=== PATIENT | female | born 2000 | race Caucasian/White ===

== ENCOUNTER 2020-12-20 09:25 | Outpatient (CLI) | payer OTHER, SELFPAY ==
--- NOTE | ~2020-12-20 | US_ITS ---
EXAMINATION: US abdomen limited DATE: 12/20/2020 10:01 INDICATION: Abnormal liver function tests. TECHNIQUE: Multiple grayscale and Doppler ultrasound images of the abdomen were obtained. COMPARISON: None FINDINGS: The visualized portion of the head of the pancreas is normal. The liver is normal without f ocal lesion. No liver surface nodularity. There is normal flow in main portal vein. The gallbladder i s normal in size. No gallstones or gallbladder wall thickening. There was no sonographic Candelaria sign. The common duct is normal and measures 3 mm. Right kidney is normal. IMPRESSION: 1. Normal right upper quadrant ultrasound. Reviewed, dictated and finalized at location B.
[2020-12-20 12:11] LABS: Hepatitis B Surface Antigen Negative (Negative)
[2020-12-20 12:17] LABS: HAV RESULT Negative (Negative); Hepatitis B Core IgM Result Negative (Negative)
[2020-12-20 12:28] LABS: Hepatitis C Virus Antibody Negative (Negative)
== END 2020-12-20 09:26 | disposition home or self-care (01) ==
PROVIDERS: PCP Nurse Practitioner Family; Visit Provider Nurse Practitioner Family
DX: R74.8 Abnormal levels of other serum enzymes (principal)
CPT/HCPCS: 36415; 76705; 80074

== ENCOUNTER 2021-09-07 15:40 | Emergency (ER) | payer OTHER, SELFPAY ==
[2021-09-07 15:41] VITALS: BP 117/62; PULSE 100; RESP 16; TEMP 37.3; O2SAT 100
--- NOTE | 2021-09-07 17:43 | PC.NURSE ---
pt's mother at desk asking how much longer. Explained the wait is extensive this evening. Pt is tearful with her mother. Took her own pain medication. Explained unable to give a wait time or how long it will be due to the acuity of other pt's that could come in who are more critical.
--- NOTE | 2021-09-07 17:47 | PC.NURSE ---
mother frantic due to the pt crying and shaking her hands at her mother. Gave ice pack and wet cold washcloth
--- NOTE | 2021-09-07 18:41 | PC.NURSE ---
from 174 until 184 mother sat with pt at bench near intake desk. In formed mother she had to wait outside and pt must sit in WR.
[2021-09-07 20:02] VITALS: BP 114/72; PULSE 113; RESP 16; O2SAT 99
--- NOTE | 2021-09-07 20:10 | ED.GENADULT ---
HPI - General Adult General Chief complaint: Dental/Oral Stated complaint: not urinating Time Seen by Provider: 09/07/21 19:43 Source: patient, family and RN notes reviewed Limitations: no limitations History of Present Illness HPI narrative: 21-year-old female presenting to the emergency department for evaluation of difficulty swallowing and uncontrolled pain since having a recent tonsillectomy. Patient had a tonsillectomy performed on Sunday by Dr. Kern. Patient states since that time she has been attended to take hydrocodone elixir but states that the medication is worsening her nausea and not controlling her pain. Patient's mother did have contact with the ENT and he recommended she present to the emerge department for evaluation. Patient denies any bleeding. Patient does dehydration. Her ENT did start her on a Medrol Dosepak but due to her being in the emergency department she has not yet started this medication. Related Data Home Medications Medication Instructions Recorded Confirmed bupropion HCl mg PO 09/07/21 escitalopram oxalate mg 09/07/21 norethindrone-e.estradiol-iron tablet 09/07/21 Allergies Allergy/AdvReac Type Severity Reaction Status Date / Time No Known Allergies Allergy Verified 09/07/21 20:04 Review of Systems Review of Systems: CONSTITUTIONAL: Denies fever, chills, or sweats. EYES: Denies visual changes, redness, or discharge. ENT: No difficulty breathing but does have increased pain with swallowing.. CARDIOVASCULAR: Denies chest pain, palpitations, or edema. RESPIRATORY: Denies cough or dyspnea. GASTROINTESTINAL: Denies abdominal pain but does have increased nausea and has had some emesis GENITOURINARY: Denies dysuria or hematuria. SKIN: Denies rash or itching. MUSCULOSKELETAL: Denies back pain, joint pain, or myalgia. NEUROLOGIC: Denies headache, numbness, or weakness. Exam Narrative: APPEARANCE: Well appearing, no pain, no distress, well-nourished. HEAD: normocephalic, atraumatic. EYES: PERRLA/EOMI, conjunctivae clear. NOSE: Normal no drainage EARS:TMS clear with good light reflex. THROAT: Able to view the eschars and they are well-appearing. No active bleeding. No abnormal swelling. No trismus NECK: Supple. No adenopathy, no masses. RESPIRATORY: Airway patent, respirations nonlabored. Clear to auscultation bilaterally, no rales, rhonchi, wheezing. CARDIOVASCULAR: Regular rate and rhythm without murmurs rubs or gallops. ABDOMINAL: Soft, nontender, nondistended, normal bowel sounds Course Course Emergency Course: Patient and mother updated on plan for IV fluids, meds for pain medication and antiemetics. Patient was also given her first dose of dexamethasone in the emergency department. Reevaluation(s) Reevaluation #1: On final reevaluation patient does feel improved. Both patient and mother were comfortable with the plan for discharge and close follow-up. All questions and concerns were addressed. Patient was in no distress at time of discharge from the emergency department. Vital Signs Vital signs: Vital Signs Temperature 99.2 F 09/07/21 15:41 Pulse Rate 100 09/07/21 15:41 Respiratory Rate 16 09/07/21 15:41 Blood Pressure 117/62 09/07/21 15:41 Pulse Oximetry 100 09/07/21 15:41 Temperature 99.2 F 09/07/21 15:41 Pulse Rate 113 H 09/07/21 21:52 Respiratory Rate 18 09/07/21 21:52 Blood Pressure 109/66 09/07/21 21:52 Pulse Oximetry 99 09/07/21 21:52 Medical Decision Making Vital Signs Vital Signs: Vital Signs Temperature 99.2 F 09/07/21 15:41 Pulse Rate 100 09/07/21 15:41 Respiratory Rate 16 09/07/21 15:41 Blood Pressure 117/62 09/07/21 15:41 Pulse Oximetry 100 09/07/21 15:41 Temperature 99.2 F 09/07/21 15:41 Pulse Rate 113 H 09/07/21 21:52 Respiratory Rate 18 09/07/21 21:52 Blood Pressure 109/66 09/07/21 21:52 Pulse Oximetry 99 09/07/21 21:52 Lab Data Lab results reviewed: Yes I reviewed the patient
[2021-09-07] MEDS: SODIUM CHLORIDE 0.9% IV 1,000 ML 999 ML IV CONT (20:13)
[2021-09-07] MEDS: ONDANSETRON INJ 4 MG/2 ML VIAL IV PUSH (20:13)
[2021-09-07] MEDS: DEXAMETHASONE SOD PHOS INJ 4 MG/ML VIAL 6 MG IV PUSH (20:14)
[2021-09-07] MEDS: HYDROmorphone HCL INJ (*CRX) 1 MG/ML SYR 0.5 MG IV PUSH ×2 (20:16→21:26)
[2021-09-07 20:24] LABS: Hematocrit 34.7 % (37.0-47.0); Hemoglobin 12.3 g/dL (12.0-15.0); Mean Corpuscular HGB Conc 35.4 g/dl (32-36); Mean Corpuscular Hemoglobin 31.3 pg (26-34); Mean Corpuscular Volume 88.3 fl (80-100); Mean Platelet Volume 9.5 fl (7.4-10.4); Platelet Count Result 292 k/mm3 (150-375); Red Blood Count 3.93 M/mm3 (4.2-5.4); Red Cell Distribution Width 12.1 % (11.5-14.5); White Blood Count 3.7 K/mm3 (4.5-10.0)
[2021-09-07 20:33] LABS: Alanine Aminotransferase 36 U/L (4-35); Albumin Level 4.2 g/dL (3.5-5.1); Alkaline Phosphatase 250 U/L (38-126); Anion Gap 11 mmol/L (8-16); Aspartate Amino Transferase 28 U/L (14-36); Bilirubin,Total 1.2 mg/dL (0.2-1.3); Blood Urea Nitrogen 6 mg/dL (7-17); Calcium 9.4 mg/dL (8.4-10.2); Carbon Dioxide 25 mmol/L (22-30); Chloride 100 mmol/L (98-107); Estimated CRCL calculation 101 ml/min; Estimated Glomerular Filt Rate > 60; Glucose 105 mg/dL (65-110); Potassium 3.9 mmol/L (3.4-5.0); Sodium 136 mmol/L (137-145)
[2021-09-07 20:59] LABS: Band Neutrophils Percent 8 % (0-6); Lymphocytes Absolute Manual 1.48 K/mm3 (1.1-4.5); Monocytes Absolute Manual 1.03 K/mm3 (0.1-0.90); Monocytes Percent Manual 28 % (3-9); Neutrophils Absolute Manual 1.18 K/mm3 (1.7-7.2); Neutrophils Percent Manual 24 % (46-73); Nucleated Red Blood Cells 3 %; Platelet Estimate Adequate (Adequate); Total Cells Counted 100
[2021-09-07 21:52] VITALS: BP 109/66; PULSE 113; RESP 18; O2SAT 99
== END 2021-09-07 21:30 | disposition home or self-care (01) ==
PROVIDERS: Emergency Provider Emergency Medicine; PCP Nurse Practitioner Family
DX: J02.9 Acute pharyngitis, unspecified (principal); E86.0 Dehydration; R11.0 Nausea; Z98.890 Other specified postprocedural states
CPT/HCPCS: 36415; 80053; 85025; 96361; 96374; 96375; 99284; J1100; J1170; J2405; J7030